=== PATIENT | male | born 1995 | race Caucasian/White ===

== ENCOUNTER → 2016-05-17 | Outpatient (CLI) | payer BC | END | disposition home or self-care (01) | LOC: C.RDSM 08:00 | PROVIDERS: ATTEND Physical Medicine & Rehabilitation | DX: M79.641 Pain in right hand (principal) ==

== ENCOUNTER → 2016-08-24 | Outpatient (CLI) | payer BC ==
--- NOTE | 2016-08-24 15:07 | DIAGNOSTIC IMAGING REPORT ---
RIGHT FINGER(S) MIN 2 VIEWS CLINICAL HISTORY: RIGHT 5TH FINGER LACERATION Right trauma COMPARISON: None. DISCUSSION: Small avulsions from the tuft of the distal phalanx. Soft tissue disruption. No evidence of dislocation. All remaining osseous structures are unremarkable. IMPRESSION: Small avulsions of the tuft of the distal phalanx. Soft tissue disruption. No evidence of dislocation. Electronically signed by: Emanuel Ellis M.D. 08/24/2016 3:05 PM Dictated Date/Time: 08/24/2016 3:04 PM
== END | disposition home or self-care (01) ==
LOC: C.RDSM 14:47
PROVIDERS: ATTEND Physician Assistant
DX: S61.219A Laceration without foreign body of unspecified finger without damage to nail, initial encounter (principal); X58.XXXA Exposure to other specified factors, initial encounter

== ENCOUNTER → 2016-08-30 | Outpatient (CLI) | payer BC | END | disposition home or self-care (01) | LOC: C.RDSM 14:02 | PROVIDERS: ATTEND Physical Medicine & Rehabilitation Sports Medicine | DX: S62.666B Nondisplaced fracture of distal phalanx of right little finger, initial encounter for open fracture (principal); X58.XXXA Exposure to other specified factors, initial encounter ==